=== PATIENT | female | born 1965 | race Two or more races ===

== ENCOUNTER 2018-11-05 12:57 | Inpatient (IN) | payer OTHER ==
[~2018-11-05] VITALS: Ht 160 cm; Wt 83.0 kg
[2018-11-19] MEDS ORDERED: LISINOPRIL5 MG PO (14:38)
[2018-11-19] MEDS ORDERED: METHYLPREDNISOLO4 M1 PO (14:39)
[2018-11-30] MEDS ORDERED: PERCOCET 5-3251 EACH PO (13:05)
[2018-11-30] MEDS ORDERED: INTESTINEX680 M1 PO (13:05)
== END 2018-11-30 15:07 | disposition home or self-care (01) | DRG 327 ==
LOC: SURG 11-19 12:00 → O/R 11-24 05:59 → SURG 11-24 05:59 → EDBD 11-24 12:00 → SURG 11-24 13:25
PROVIDERS: ADMIT Surgery
PROC: 0DT64ZZ Resection of Stomach, Percutaneous Endoscopic Approach (ICD-10-PCS; 2018-11-24)
PROC: 0DTU4ZZ Resection of Omentum, Percutaneous Endoscopic Approach (ICD-10-PCS; 2018-11-24)
PROC: 0DNW4ZZ Release Peritoneum, Percutaneous Endoscopic Approach (ICD-10-PCS; 2018-11-24)
PROC: 0DN84ZZ Release Small Intestine, Percutaneous Endoscopic Approach (ICD-10-PCS; 2018-11-24)
PROC: 0DJD8ZZ Inspection of Lower Intestinal Tract, Via Natural or Artificial Opening Endoscopic (ICD-10-PCS; 2018-11-24)
PROC: 0DTN4ZZ Resection of Sigmoid Colon, Percutaneous Endoscopic Approach (ICD-10-PCS; principal; 2018-11-24 14:45)
DX: K57.32 Diverticulitis of large intestine without perforation or abscess without bleeding (principal); M33.10 Other dermatomyositis, organ involvement unspecified; K62.4 Stenosis of anus and rectum; I11.9 Hypertensive heart disease without heart failure; K66.0 Peritoneal adhesions (postprocedural) (postinfection); Z79.52 Long term (current) use of systemic steroids

== ENCOUNTER 2018-12-11 10:30 | Emergency (ER) | payer OTHER ==
[~2018-12-11] VITALS: Ht 160 cm; Wt 74.8 kg
[~2018-12-11 10:30] MED LIST: INTESTINEX680 M1 PO; LISINOPRIL5 MG PO; METHYLPREDNISOLO4 M1 PO; PERCOCET 5-3251 EACH PO
== END 2018-12-11 22:56 | disposition home or self-care (01) ==
LOC: ER 10:30
DX: K29.60 Other gastritis without bleeding (principal); R10.13 Epigastric pain; R11.11 Vomiting without nausea

== ENCOUNTER 2020-02-07 06:24 | Day surgery (SDC) | payer OTHER | END 2020-02-07 09:50 | disposition home or self-care (01) | LOC: AMB-ENDOS 06:24 | PROVIDERS: ATTEND Surgery | DX: K62.89 Other specified diseases of anus and rectum (principal); K64.4 Residual hemorrhoidal skin tags; K64.8 Other hemorrhoids; Z20.828 Contact with and (suspected) exposure to other viral communicable diseases ==